=== PATIENT | male | born 1985 | race American Indian/Alaskan Native ===

== ENCOUNTER 2018-05-11 03:58 | Emergency (ER) | payer SELFPAY ==
[2018-05-11] MEDS ORDERED: Morphine 4 MG/ML VIAL IM ONE (04:34)
[2018-05-11] MEDS ORDERED: diaZEpam 10 mg/2 ml Inj IVP ONE (04:51)
[2018-05-11] MEDS ORDERED: Propofol 10 mg/ml Inj (20 ML) ONE (05:23)
--- NOTE | 2018-05-11 05:30 | C.PDOC ---
History Of Present Illness 32 year old male presents to the ED c/o right shoulder pain. Patient reports that he missed a step, lost his balance and hit a wall with his right shoulder. Patient reports he feels like his shoulder popped out of place. Patient denies other injuries, LOC, weakness, numbness. Time Seen by Provider: 05/11/18 04:19 Chief Complaint (Nursing): Upper Extremity Problem/Injury History Per: Patient, EMS History/Exam Limitations: no limitations Onset/Duration Of Symptoms: Hrs Current Symptoms Are (Timing): Still Present Quality: "Pain" Severity: Moderate Exacerbating Factor(s): Movement Recent travel outside of the [place]: No Additional History Per: Patient Past Medical History Reviewed: Historical Data, Nursing Documentation, Vital Signs Vital Signs: Last Vital Signs Temp 98.7 F 05/11/18 04:03 Pulse 96 H 05/11/18 04:03 Resp BP 131/85 05/11/18 04:03 Pulse Ox 94 L 05/11/18 04:03 - Medical History PMH: No Chronic Diseases Surgical History: No Surg Hx Family History: States: Unknown Family Hx - Social History Hx Alcohol Use: No Hx Substance Use: No - Immunization History Hx Tetanus Toxoid Vaccination: No Hx Influenza Vaccination: No Hx Pneumococcal Vaccination: No Review Of Systems Constitutional: Negative for: Fever, Chills Cardiovascular: Negative for: Chest Pain Respiratory: Negative for: Shortness of Breath Musculoskeletal: Positive for: Shoulder Pain Skin: Negative for: Rash Neurological: Negative for: Weakness, Numbness, Headache, Dizziness Physical Exam - Physical Exam Appears: Non-toxic, No Acute Distress Skin: Normal Color, Warm, Dry, No Ecchymosis Head: Atraumatic, Normacephalic Eye(s): bilateral: Normal Inspection, PERRL, EOMI Neck: Normal ROM, Supple Extremity: No Normal ROM (decreased right shoulder. Normal remainder of extremities), Tenderness (right shoulder), Capillary Refill (< 2 seconds), Deformity (obvious deformity right shoulder), No Swelling, Other (Right shoulder no ecchymosis, erythema) Pulses: Left Radial: Normal, Right Radial: Normal Neurological/Psych: Oriented x3, Normal Speech, Normal Cognition, Normal Motor, Normal Sensation Gait: Steady ED Course And Treatment O2 Sat by Pulse Oximetry: 100 (ON RA) Pulse Ox Interpretation: Normal - Other Rad Right shoulder X-Ray (pre) X-Ray: Interpreted by Me, Viewed By Me Interpretation: Anterior shoulder dislocation Right shoulder X-Ray (post) X-Ray: Interpreted by Me, Viewed By Me Interpretation: Post reduction X-ray, successful reduction Progress Note: Plan: Pt was given motrin PO on arrival, then morphine IM for pain. - Right shoulder X-Ray. Dr Dickey ordered meds for conscious sedation and performed the shoulder reduction successfully as confirmed on post reduction XR. - Right shoulder X-Ray (post). Pt was placed in a shoulder immobilizer post reduction. Pt remained stable in no resp distress after the procedure and is stable for discharge home. Conscious sedation instructoions were given too pt as well as Ortho follow up. Return precautions were discussed with patient and sedation instructions were given. Disposition - Disposition Referrals: Glen Luna MD [Staff Provider] - Disposition: HOME/ ROUTINE Disposition Time: 06:52 Condition: STABLE Additional Instructions: tAKE TYLENOL OR ADVIL FOR PAIN KEEP SHOULDER IMMOBILIZER UNTIL SEEN BY ORTHO RETURN TO ER IF WORSE Instructions: Shoulder Dislocation (DC), Moderate Sedation in Adults (DC) Forms: [employer] (Montenegrin) - Clinical Impression Clinical Impression: Dislocation of right shoulder joint Proc Sedation PRE-PROCEDURE - Pre-Anesthesia Chief Complaint: Upper Extremity Problem/Injury Past Medical History: Medications Reviewed, Allergies Reviewed, Record Review Previous Surgies: Reviewed Family History/Social History: Reviewed - Physical Exam/Review of Systems Vital Signs Reviewed: Yes Cardiovascular: Regular Rate and Rhythm, Normal S1, S2. denies: Murmurs Respiratory/Chest: Clear to Auscultation, Good Air Exchange. denies: Respiratory Distress, Accessory Muscle Use Neurological: GCS=15, CN II-XII Intact, Speech Normal Abdomen: Normal Bowel Sounds. denies: Tenderness, Distention, Peritoneal Signs - Pre-Procedure Airway Assessment History of difficult intubation or surgical airway (i.e trach):: No Inability to extend neck:: No Mouth opening less than two finger breadth:: No Diagnosis of sleep apnea:: No Less than three finger breadth to hyoid bone:: No ASA Criteria: 1 - Healthy, normal. 2 - Mild systemic disease (No functional limitations, mildline obesity, DM withot complications, Hypertention). 3 - Severe systemic disease (Some functional limitation, stable angina, morbid obesity, controlled COPD/Asthma/CHF). 4 - Sever systemic disease constant threat to life (Unstable angina, active symptoms of COPD/Asthma, CHF/Hypertension. 5 - Moribund ASA Clarification: ASA I Proc Sedation INTRA-PROCEDURE - Medications Medications Given: Discontinued Medications Diazepam (Valium) 5 mg IVP ONCE ONE Stop: 05/11/18 04:52 Last Admin: 05/11/18 05:13 Dose: 5 mg IVP Administration Document 05/11/18 05:13 AW (Rec: 05/11/18 05:14 AW [id number]) Charges for Administration # of IVP Administrations 1 Ibuprofen (Motrin Tab) 800 mg PO STAT STA Stop: 05/11/18 04:22 Last Admin: 05/11/18 04:38 Dose: 800 mg MAR Pain Assessment Document 05/11/18 04:38 RP (Rec: 05/11/18 04:38 RP [id number]) Pain Reassessment Is this a pain reassessment? No Presence of Pain Presence of Pain Yes Morphine Sulfate (Morphine) 2 mg IM ONCE ONE Stop: 05/11/18 04:35 Last Admin: 05/11/18 04:47 Dose: 2 mg MAR Pain Assessment Document 05/11/18 04:47 RP (Rec: 05/11/18 04:47 RP [id number]) Pain Reassessment Is this a pain reassessment? No IM Administration Charges Document 05/11/18 04:47 RP (Rec: 05/11/18 04:47 RP [id number]) Charges for Administration # of IM Administrations 1 Propofol (Diprivan) 100 mg IV ONCE ONE Stop: 05/11/18 05:33 Last Admin: 05/11/18 05:36 Dose: 100 mg eMAR Start Stop Document 05/11/18 05:36 RP (Rec: 05/11/18 05:37 RP [id number]) Intravenous Solution Start Date 05/11/18 Start Time 05:30 End Date 05/11/18 End time 05:35 Total Infusion Time 5 Proc Sedation POST-PROCEDURE - Discharge Checklist Written MD order for Discharge: Yes Vital signs assessed and are consistent with pre-procedure reading: Yes Ambulates to pre-procedural level: Yes Alert and oriented to pre-procedural level: Yes Responsible adult escort present: Yes DISCHARGE INSTRUCTIONS GIVEN:: Yes
[2018-05-11] MEDS ORDERED: Propofol 10 mg/ml Inj (20 ML) IV ONE (05:32)
[2018-05-11 05:46] VITALS: TEMP 98.2
[2018-05-11 06:54] VITALS: O2SAT 100
[2018-05-11 07:14] VITALS: BP 121/85; PULSE 84; RESP 13
--- NOTE | 2018-05-11 11:24 | RAD ---
Date of service: 05/11/2018 PROCEDURE: Radiographs of the Right Shoulder HISTORY: post reduction COMPARISON: 05/11/2018 4:42 a.m. FINDINGS: BONES: Questionable os ossific density adjacent to inferior rim of the glenoid may reflect Bankart deformity. JOINTS: Single view demonstrates close reduction anterior dislocation right shoulder. SOFT TISSUES: Normal. OTHER FINDINGS: None. IMPRESSION: Close reduction anterior dislocation right glenohumeral articulation. 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
--- NOTE | 2018-05-11 11:26 | RAD ---
Date of service: 05/11/2018 PROCEDURE: Radiographs of the Right Shoulder HISTORY: pain, fall COMPARISON: No prior. FINDINGS: BONES: Suspected Bankart deformity inferior glenoid. JOINTS: Anterior dislocation right glenohumeral articulation. Acromioclavicular articulation intact. SOFT TISSUES: Normal. OTHER FINDINGS: None. IMPRESSION: Anterior dislocation with possible Bankart deformity.
== END 2018-05-11 07:14 | disposition home or self-care (01) ==
LOC: C.ER 03:58
DX: S43.084A Other dislocation of right shoulder joint, initial encounter (principal); W22.01XA Walked into wall, initial encounter
CPT/HCPCS: 23655; 73030; 96372; 96374; 99285; J2270; J2704; J3360